=== PATIENT | male | born 1985 ===

== ENCOUNTER → 2023-12-07 | Day surgery (SDC) | payer OTHER ==
[~2023-12-07] MED LIST: Dexamethasone 4 MG/ML SDV IVPUSH ONE; Glycopyrrolate 0.2 MG/ML 5 ML MDV IV ONE; Ketorolac 30 MG/ML SDV IVPUSH ONE; Lidocaine 2% 100 MG/5 ML Syringe IVPUSH ONE; Midazolam 1 MG/ML 2 ML SDV IV ONE; Ondansetron 4 MG/2 ML SDV IVPUSH ONE; Propofol 200 MG/20 ML SDV IV ONE; Rocuronium 100 MG/10 ML MDV IV ONE; Sodium Chloride 0.9% 10 ML Syringe FLUSH PRN; fentaNYL 100 MCG/2 ML SDV IV ONE
[2023-12-07] MEDS: Lactated Ringers 1,000 ML IV SCH (08:05)
[2023-12-07] MEDS: ceFAZolin 2 GM Vial IVPUSH ONE (08:07)
[2023-12-07] MEDS: Lidocaine 1% with EPINEPHrine 1:100,000 20 ML MDV INJECT ONE (08:37)
[2023-12-07] MEDS: Bupivacaine 0.5% 30 ML SDV INJECT ONE (08:37)
== END ==
LOC: FB.SDS 07:05
PROVIDERS: ATTEND Surgery
DX: K40.90 Unilateral inguinal hernia, without obstruction or gangrene, not specified as recurrent (principal)
CPT/HCPCS: 00830; 88302; C1781; J0665; J0690; J1100; J1596; J1885; J2250; J2405; J2704; J3010; J7120